=== PATIENT | female | born 2000 | race Caucasian/White ===

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

== ENCOUNTER 2023-02-04 17:51 | Emergency (ER) | payer MEDICAID, SELFPAY ==
[2023-02-04 17:52] VITALS: BP 122/81; PULSE 98; RESP 16; TEMP 36.9; O2SAT 100; BMI 22.6
--- NOTE | 2023-02-04 18:31 | EDS_ITS ---
HPI History of Present Illness Chief Complaint: Upper Extremity Injury Informant: patient Narrative Narrative: Patient is a 22-year-old female presenting for injury to her right fourth finger. Patient states he works at [employer]. 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 She has a very small abrasion at the cuticle and complained of pain at the distal PIP joint with some bruising. This happened around 5 PM. She came to the ER for further evaluation. Did not take anything for pain prior to arrival. States initially her finger felt really cold after but denies any associated numbness or tingling. No other injuries reported. No other complaints at this time. PFSH PFSH Medical History no medical history Home Medications NK 02/04/23 [History Last Taken Unknown] Allergy/AdvReac Type Severity Reaction Status Date / Time No Known Allergies Allergy Verified 02/04/23 17:54 Social History Smoking Status: Current every day smoker tobacco type: e-cigarettes ROS ROS ED Constitutional Constitutional ED: Denies chills or fever(s) Cardiovascular Cardiovascular: Denies chest pain Gastrointestinal Gastrointestinal: Denies nausea or vomiting Musculoskeletal Musculoskeletal: Reports other Details: right 4th finger pain and injury Integumentary Reports Abrasions Neurologic Neurologic: Denies paresthesias or weakness Hematologic/Lymphatic Hematologic/Lymphatic: Denies easy bleeding or easy bruising EXAM Physical Exam Const Vital Signs: 02/04/23 17:52 Temperature 98.5 F Temperature Source Temporal Pulse Rate 98 Respiratory Rate 16 Blood Pressure 122/81 H Blood Pressure Mean 94 Pulse Ox 100 Oxygen Delivery Method Room Air Positive well nourished and well developed General Appearance ED: well developed HEENT normocephalic and atraumatic Neck supple Chest Wall inspection of chest normal Resp normal respiratory effort Cardio regular rate and regular rhythm Extremity Extremity Narrative: Patient has some slight swelling and tenderness palpation of the distal interphalangeal joints of the right fourth finger. There is a tiny abrasion at the base of the cuticle with no active bleeding. No associated subungual hematoma. Normal flexion extension of the finger with no obvious deformity. Neuro oriented x3, moves all extremities, no focal motor deficits and no sensory deficits noted Psych mental status grossly normal Skin Skin Narrative: See extremity Rashes: no rashes Trauma: abrasion MDM MDM MDM Narrative Medical decision making narrative: Patient is evaluated for injury to her right fourth finger. She is ne urovascularly intact. X-ray will be obtained to rule out fracture versus contusion. No obvious signs of tendon injury on exam. No subungual hematoma. No associated laceration. I do not think this requires a tetanus shot. Patient is given a dose of Motrin for pain control in the ER. X-ray to read by myself as well as radiology does not show any acute process. Patient is given a lizette tape. Is given NSAIDs in the emergency room. Discharged home with outpatient follow-up for Workmen's Comp. Discharged home in stable condition. Discharge Plan Triage Chief Complaint: Upper Extremity Injury ED Provider: Leonor Morrison Dx/Rx/DC Orders Clinical Impression: Contusion of right index finger Instructions: ED Finger Contusion Prescriptions: No Action NK Primary Care Provider: Kenzie Gonzalez NP Referrals: [facility] [Group of Physicians] - 3-5 Days if not improving Kenzie Gonzalez NP, EMISSION TECHNICIAN-C [Primary Care Provider] - Activity Restrictions/Additional Instructions: Alternate ibuprofen and Tylenol for pain. Your x-ray does not show any broken bone. Were lizette tape as needed for discomfort. Disposition Disposition: Home, Self Care Discharge Date/Time: 02/04/23 20:25
--- NOTE | 2023-02-04 18:36 | RAD_ITS ---
STUDY: X-RAY - RIGHT HAND, ATTENTION FINGER REASON FOR EXAM: Female, 22 years old. Injury/Pain -- 4th finger TECHNIQUE: 3 view(s) of the finger were obtained. COMPARISON: None. FINDINGS: Normal metacarpal head. Normal metacarpophalangeal joint. Normal proximal phalanx. Normal middle phalanx. Normal distal phalanx. Normal proximal interphalangeal joint. Normal distal interphalangeal joint. There is no demonstrated fracture. RAD/Finger(s) Min 2 Views IMPRESSION: Normal x-ray examination of the finger. Electronically Signed: Darian Hill MD at 19:31 EDT ,
[2023-02-04] MEDS: Ibuprofen 600 MG Tablet PO (18:40)
== END 2023-02-04 20:25 | disposition home or self-care (01) ==
PROVIDERS: Emergency Provider Emergency Medicine; PCP Registered Nurse; Visit Provider Emergency Medicine
DX: S60.021A Contusion of right index finger without damage to nail, initial encounter (principal); W23.2XXA Caught, crushed, jammed or pinched between a moving and stationary object, initial encounter; Y93.89 Activity, other specified; Y92.69 Other specified industrial and construction area as the place of occurrence of the external cause; F17.290 Nicotine dependence, other tobacco product, uncomplicated
CPT/HCPCS: 73140; 99283